=== PATIENT | female | born 1955 | race African-American/Black ===

== ENCOUNTER 2023-01-12 06:10 | Day surgery (SDC) | payer OTHER ==
[2023-01-11 09:18] VITALS: BMI 31.8
[~2023-01-12 06:10] MED LIST: VANCOMYCIN 1,000 MG VIAL (RESTRICTED TO ID ONLY) IVPB ONE
[2023-01-12] MEDS ORDERED: CELECOXIB 200 MG CAPSULE ONE (06:32)
[2023-01-12] MEDS ORDERED: CELECOXIB 200 MG CAPSULE PO ONE (06:34)
[2023-01-12] MEDS ORDERED: CEFAZOLIN 2 GM in DEXTROSE 5%-WATER - 50 ML IVPB ONE (06:34)
[2023-01-12] MEDS ORDERED: TRANEXAMIC ACID 1000 MG/10 ML VIAL IVPUSH ONE (06:34)
[2023-01-12] MEDS ORDERED: ceFAZolin SODIUM 1 GM VIAL ONE ×2 (07:07→08:15)
[2023-01-12] MEDS ORDERED: VANCOMYCIN 1,000 MG VIAL (RESTRICTED TO ID ONLY) ONE (07:07)
[2023-01-12] MEDS ORDERED: MIDAZOLAM HCL 2 MG/2 ML SINGLE DOSE VIAL ONE ×2 (07:37→08:45)
[2023-01-12] MEDS ORDERED: BUPIVACAINE HCL/PF 0.5% (5MG/ML) 10 ML VIAL ONE (07:37)
[2023-01-12] MEDS ORDERED: FENTANYL CITRATE/PF 50 MCG/ML VIAL ONE (07:37)
[2023-01-12] MEDS ORDERED: BUPIVACAINE LIPOSOME/PF (EXPAREL) 266 MG/20 ML VIAL ONE (07:37)
[2023-01-12] MEDS ORDERED: ONDANSETRON 4 MG/2 ML VIAL IVPUSH PRN ×2 (07:51→10:09)
[2023-01-12] MEDS ORDERED: LACTATED RINGERS SOLUTION 1,000 ML IV SCH (08:00)
[2023-01-12] MEDS ORDERED: SODIUM CHLORIDE 0.9% P/F 10 ML VIAL IJ ONE (08:15)
[2023-01-12] MEDS ORDERED: TRANEXAMIC ACID 1000 MG/10 ML VIAL ONE ×2 (08:18→09:17)
[2023-01-12] MEDS ORDERED: ONDANSETRON 4 MG/2 ML VIAL ONE (08:25)
[2023-01-12] MEDS ORDERED: GLYCOPYRROLATE 0.2 MG/1 ML VIAL ONE (09:22)
[2023-01-12] MEDS ORDERED: VANCOMYCIN 1,000 MG VIAL (RESTRICTED TO ID ONLY) IVPB ONE (09:24)
[2023-01-12] MEDS ORDERED: PATIENT'S OWN MEDICATION (NON-FORMULARY) (Atenolol/Chlorthalidone [Atenolol-Chlorthalidone PO SCH (10:00)
[2023-01-12] MEDS ORDERED: PROMETHAZINE HCL 25 MG/1 ML VIAL IVPB PRN (10:09)
[2023-01-12] MEDS ORDERED: ACETAMINOPHEN 1000 MG/100 ML BAG IVPB ONE (10:09)
[2023-01-12] MEDS ORDERED: oxyCODONE HCL 5 MG TABLET PO PRN (10:09)
[2023-01-12] MEDS: CEFAZOLIN SODIUM 2 GM in DEXTROSE 5%-WATER 100 ML IVPB SCH ×2 (16:26→23:26)
[2023-01-12] MEDS: KETOROLAC TROMETHAMINE 30 MG/1 ML VIAL IVPUSH SCH (16:26)
[2023-01-12] MEDS: ACETAMINOPHEN 500 MG TABLET (FP) PO SCH ×2 (18:42→23:26)
[2023-01-12] MEDS: oxyCODONE HCL 10 MG SUSTAINED ACTING TABLET PO SCH (21:12)
[2023-01-12] MEDS: oxyCODONE HCL 5 MG TABLET PO PRN (21:12)
[2023-01-12] MEDS: SENNOSIDES/DOCUSATE COMBO (SENNA PLUS) TABLET (UD) PO SCH (21:13)
[2023-01-13 02:14] VITALS: RESP 18
[2023-01-13] MEDS: ACETAMINOPHEN 500 MG TABLET (FP) PO SCH ×2 (06:21→12:45)
[2023-01-13] MEDS: oxyCODONE HCL 5 MG TABLET PO PRN (06:21)
[2023-01-13] MEDS: POTASSIUM CHLORIDE TABS 10 MEQ TABLET.ER (FP) PO SCH ×2 (07:53→09:32)
[2023-01-13] MEDS: CHLORTHALIDONE 25 MG TABLET PO SCH ×2 (07:53→09:35)
[2023-01-13] MEDS: SENNOSIDES/DOCUSATE COMBO (SENNA PLUS) TABLET (UD) PO SCH ×2 (07:53→09:32)
[2023-01-13] MEDS: ATORVASTATIN CA 10 MG TABLET (FP) PO SCH ×2 (07:53→09:33)
[2023-01-13] MEDS: ATENOLOL 50 MG TABLET (FP) PO SCH ×2 (07:54→09:36)
[2023-01-13] MEDS: LACTATED RINGERS SOLUTION 1,000 ML IV SCH ×2 (07:54→13:30)
[2023-01-13] MEDS: MULTIVITAMINS (DAILY MVI) TABLET (FP) PO SCH ×2 (07:54→09:33)
[2023-01-13] MEDS: oxyCODONE HCL 10 MG SUSTAINED ACTING TABLET PO SCH ×2 (07:54→09:35)
[2023-01-13] MEDS: PANTOPRAZOLE 40 MG TABLET PO SCH ×2 (07:54→09:33)
[2023-01-13] MEDS: KETOROLAC TROMETHAMINE 30 MG/1 ML VIAL IVPUSH SCH (07:56)
[2023-01-13] MEDS ORDERED: ASPIRIN 325 MG TABLET PO SCH (08:00)
[2023-01-13 08:19] LABS: HEMATOCRIT 37.7 % (32.4-45.2); HEMOGLOBIN 12.6 G/dL (10.7-15.3); MCH 26.7 pg (25.7-33.7); MCHC 33.3 g/dl (32.0-36.0); MEAN CELL VOLUME 80.3 fl (80-96); MEAN PLT VOLUME 10.2 fl (7.5-11.1); PLATELET COUNT 134.6 10^3/uL (134-434); RDW 16.6 % (11.6-15.6)
[2023-01-13 14:06] VITALS: BP 98/74; PULSE 76; TEMP 98.4
== END 2023-01-13 15:56 | disposition home or self-care (01) ==
LOC: FASUSAT 06:10 → FM/S 12:51 → FASUSAT 01-13 15:56
PROVIDERS: ATTEND Orthopaedic Surgery
PROC: 8E0Y0CZ Robotic Assisted Procedure of Lower Extremity, Open Approach (ICD-10-PCS; 2023-01-12)
PROC: 0SRC0JA Replacement of Right Knee Joint with Synthetic Substitute, Uncemented, Open Approach (ICD-10-PCS; principal; 2023-01-12 08:27)
DX: M17.11 Unilateral primary osteoarthritis, right knee (principal); I10 Essential (primary) hypertension
CPT/HCPCS: 20985; 27447; C1776; S2900; 36415; 73560-TC-RT-FY; 85027; 94760; 97010-GP; 97116-GP; 97162-GP; C1713